=== PATIENT | female | born 1955 ===

== ENCOUNTER 2017-03-30 10:55 | Outpatient (CLI) | payer OTHER ==
[2017-03-30 19:01] LABS: BILIRUBIN,TOTAL 0.6 mg/dL (0.2-1.0); TOTAL PROTEIN 7.3 g/dL (6.7-8.2)
[2017-03-30 19:27] LABS: BILIRUBIN,DIRECT < 0.1 mg/dL (0.1-0.5)
== END 2017-03-30 10:56 | disposition home or self-care (01) ==
LOC: LAB.F 10:55
PROVIDERS: ATTEND Naturopath
DX: Z20.5 Contact with and (suspected) exposure to viral hepatitis (principal)
CPT/HCPCS: 36415; 80076; 82977; 86803; 87522

== ENCOUNTER 2018-05-29 22:31 | Outpatient (CLI) | payer OTHER | END 2018-05-29 22:32 | disposition critical access hospital (66) | LOC: EMS 22:31 | PROVIDERS: ATTEND Surgery | DX: R07.9 Chest pain, unspecified (principal) | CPT/HCPCS: A0425; A0427 ==

== ENCOUNTER 2018-05-29 23:09 | Emergency (ER) | payer OTHER ==
[2018-05-29] MEDS ORDERED: ASPIRIN CHEW 81 MG TABLET PO STA (23:19)
[2018-05-29 23:42] LABS: BASOPHILS # (AUTO) 0.1 10^3/uL (0.0-0.1); EOSINOPHILS # (AUTO) 0.1 10^3/uL (0.0-0.7); EOSINOPHILS % (AUTO) 1.9 %; HGB - HEMOGLOBIN 13.3 g/dL (12.0-16.0); LYMPHOCYTES # (AUTO) 2.1 10^3/uL (1.5-3.5); LYMPHOCYTES % (AUTO) 38.1 %; MEAN CORPUSCULAR HEMOGLOBIN 31.2 pg (27.0-31.0); MEAN CORPUSCULAR HGB CONC 34.5 g/dL (32.0-36.0); MEAN CORPUSCULAR VOLUME 90.3 fL (81.0-99.0); MEAN PLATELET VOLUME 9.9 fL (7.9-10.8); MONOCYTES # (AUTO) 0.3 10^3/uL (0.0-1.0); MONOCYTES % (AUTO) 5.9 %; NEUTROPHILS # (AUTO) 2.9 10^3/uL (1.5-6.6); NEUTROPHILS % (AUTO) 53.1 %; PLT - PLATELET COUNT 181 10^3/uL (130-450); RED BLOOD COUNT 4.28 10^6/uL (4.20-5.40); RED CELL DISTRIBUTION WIDTH 13.5 % (12.0-15.0); WHITE BLOOD COUNT 5.5 x10^3/uL (4.8-10.8)
--- NOTE | 2018-05-29 23:49 | XRAY Report ---
Reason: chest pain Procedure Date: 05/29/2018 Accession Number: [id number] / [id number] Procedure: XR - Chest 1 View X-Ray CPT Code: 11789 FULL RESULT: EXAM: CHEST RADIOGRAPHY EXAM DATE: 05/29/2018 11:33 PM. CLINICAL HISTORY: Chest pain. Mid chest pain, left-sided chest pain, COMPARISON: None. TECHNIQUE: 1 view. FINDINGS: Lungs/Pleura: No focal opacities evident. No pleural effusion. No pneumothorax. Mediastinum: Within exam limitations, the cardiomediastinal contour is normal. Other: Small to medium hiatal hernia. IMPRESSION: Small to medium hiatal hernia. No acute cardiopulmonary abnormality demonstrated. RADIA
[2018-05-29 23:54] LABS: ALBUMIN 4.3 g/dL (3.2-5.5); ALBUMIN/GLOBULIN RATIO 1.5 (1.0-2.2); BILIRUBIN,TOTAL 0.4 mg/dL (0.2-1.0); CREATININE 0.7 mg/dL (0.4-1.0); TOTAL PROTEIN 7.2 g/dL (6.7-8.2)
--- NOTE | 2018-05-30 00:55 | ED Physician Documentation ---
PD HPI CHEST PAIN - Stated complaint Stated Complaint: LEFT SIDE CP - Chief complaint Chief Complaint: Cardiac - History obtained from History obtained from: Patient, EMS - History of Present Illness Timing - onset: Today Timing - onset during: Rest Timing - details: Gradual onset, Still present Quality: Pressure, Sharp Location: Left chest Worsened by: Movement, Palpation Associated symptoms: No: Shortness of air, Diaphoresis, Nausea Similar symptoms before: Has not had sx before Recently seen: Not recently seen - Additional information Additional information: Patient is a 62 year old female presenting to the emergency department for left sided chest pain. patient states that it started this evening. it is in her left chest. It is localized and worse when you press on it. patient denies aggravating or alleviating factors. patient states that it was 4/10 when she called ems. Patient was treated with nitro enroute which brought the pain to a 2. Upon initial evaluation in the emergency department patient was well appearing and in no distress. 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 Review of Systems Ten Systems: 10 systems reviewed and negative Constitutional: denies: Fever, Chills Eyes: reports: Reviewed and negative Cardiac: reports: Chest pain / pressure. 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: Hysterectomy HEENT: Tonsil/Adenoidectomy - Allergies Allergies/Adverse Reactions: Allergies Allergy/AdvReac Type Severity Reaction Status Date / Time bacitracin [From Polysporin] Allergy Rash Verified 05/29/18 23:15 gluten Allergy Rash Verified 05/29/18 23:15 miconazole Allergy Rash Verified 05/29/18 23:15 [From Neosporin AF] polymyxin B [From Polysporin] Allergy Rash Verified 05/29/18 23:15 high frutose corn syrup AdvReac Nausea Uncoded 05/29/18 23:15 sugar AdvReac Nausea Uncoded 05/29/18 23:15 - Social History Does the pt smoke?: No Smoking Status: Never smoker Does the pt drink ETOH?: No Does the pt have substance abuse?: No - Immunizations Immunizations are current?: Yes - POLST Patient has POLST: No PD ED PE NORMAL - Vitals Vital signs reviewed: Yes - General General: Alert and oriented X 3, No acute distress - HEENT HEENT: Atraumatic - Cardiac Cardiac: RRR - Respiratory Respiratory: No respiratory distress, Clear bilaterally - Abdomen Abdomen: Soft - Derm Derm: Normal color, Warm and dry, No rash - Extremities Extremities: No deformity - Neuro Neuro: Alert and oriented X 3, No motor deficit, Normal speech Eye Opening: Spontaneous Motor: Obeys Commands Verbal: Oriented GCS Score: 15 - Psych Psych: Normal mood PD ED PE EXPANDED - Cardiac Cardiac: Chest wall TTP (tenderness to palpation of left chest wall) Results - Vitals Vitals: Vital Signs - 24 hr 05/29/18 05/29/18 23:10 23:20 Temperature 36.4 C L Heart Rate 67 Respiratory 18 Rate Blood Pressure 127/85 H Blood Pressure 127/85 H [Right] O2 Saturation 93 Oxygen O2 Source Room air - EKG (time done) 2314 Rate: Rate (enter#) (60) Rhythm: NSR [place]: Normal Intervals: Normal CT QRS: Normal Ischemia: Normal ST segments - Labs Labs: Laboratory Tests 05/29/18 05/29/18 05/29/18 23:35 23:35 23:35 WBC 5.5 RBC 4.28 Hgb 13.3 Hct 38.6 MCV 90.3 MCH 31.2 H MCHC 34.5 RDW 13.5 Plt Count 181 MPV 9.9 Neut # (Auto) 2.9 Lymph # (Auto) 2.1 [place] # (Auto) 0.3 Eos # (Auto) 0.1 Baso # (Auto) 0.1 Absolute Nucleated RBC 0.00 Nucleated RBC % 0.1 Sodium 137 Potassium 3.6 Chloride 103 Carbon Dioxide 25 Anion Gap 9.0 BUN 13 Creatinine 0.7 Estimated GFR (MDRD) 85 L Glucose 108 H Calcium 9.0 Total Bilirubin 0.4 AST 21 ALT 26 Alkaline Phosphatase 47 Troponin I < 0.04 B-Natriuretic Peptide Total Protein 7.2 Albumin 4.3 Globulin 2.9 Albumin/Globulin Ratio 1.5 Lipase 51 05/29/18 23:35 WBC RBC Hgb Hct MCV MCH MCHC RDW Plt Count MPV Neut # (Auto) Lymph # (Auto) [place] # (Auto) Eos # (Auto) Baso # (Auto) Absolute Nucleated RBC Nucleated RBC % Sodium Potassium Chloride Carbon Dioxide Anion Gap BUN Creatinine Estimated GFR (MDRD) Glucose Calcium Total Bilirubin AST ALT Alkaline Phosphatase Troponin I B-Natriuretic Peptide 28 Total Protein Albumin Globulin Albumin/Globulin Ratio Lipase - Rads (name of study) chest x-ray Radiology: Final report received (normal) PD MEDICAL DECISION MAKING - ED course Complexity details: reviewed old records, reviewed results, re-evaluated patient, considered differential, d/w patient, d/w family ED course: Patient was seen and examined at bedside. patient was well appearing and in no acute distress. ekg was performed was within normal limits. iv access was gained and labs were drawn. patient was treated with aspirin. chest x-ray was within normal limits. Patient's diagnostics including repeat troponin were within normal limits. Patient had a HEART score of 1. patient required no further work up at this time and was stable for discharge with outpatient follow up. - Sepsis Event Vital Signs: Vital Signs - 24 hr 05/29/18 05/29/18 23:10 23:20 Temperature 36.4 C L Heart Rate 67 Respiratory 18 Rate Blood Pressure 127/85 H Blood Pressure 127/85 H [Right] O2 Saturation 93 Oxygen O2 Source Room air Departure - Departure Disposition: 01 Home, Self Care Clinical Impression: Chest wall pain Condition: Good Instructions: ED Strain Chest Wall Follow-Up: primary,care provider [Other] - As Needed Comments: Your diagnostics today were within normal limits. there were no significant abnormalities on you blood work, ekg or imaging. Your symptoms are likely musculoskeletal in nature. you can take motrin or tylenol as needed for pain. You should follow up with your doctor if your symptoms persist. You may return to the emergency department at any time for new, worsening or uncontrollable symptoms.
[2018-05-30 01:39] VITALS: BP 112/74
== END 2018-05-30 01:46 | disposition home or self-care (01) ==
LOC: EDUNIT# → ED 23:09
DX: R07.89 Other chest pain (principal)
CPT/HCPCS: 36415; 71045; 80053; 83690; 83880; 84484; 85025; 93005; 99283; 99284; A9270

== ENCOUNTER 2020-07-25 15:20 | Outpatient (CLI) | payer OTHER | END 2020-07-25 15:21 | disposition EMS.NT | LOC: EMS 15:20 | PROVIDERS: ATTEND Surgery | DX: R06.02 Shortness of breath (principal) ==

== ENCOUNTER 2020-07-25 16:00 | Emergency (ER) | payer OTHER ==
--- NOTE | 2020-07-25 16:27 | ED Physician Documentation ---
History of Present Illness - Stated complaint Stated Complaint: DIZZY, SOA - Chief complaint Chief Complaint: Resp - History obtained from History obtained from: Patient - History of Present Illness Timing: Prior to arrival - Additonal information Additional information: 64-year-old female presents to the emergency department for evaluation of shortness of air. She reports that this a.m. when she woke up she felt that she was dizzy. It was not necessarily positional and she denied at that time that there was chest pain or difficulty breathing. She did not feel fatigued have a cough or fever. She decided to lay down and take a nap. She woke up on her side and stated that she was gasping for air and it took a while before she could catch her breath. She got very concerned and called the nurse line for her insurance. They advised that she call EMS. EMS arrived at her house and told her that everything was fine. At this time she was no longer feeling short of air, she had no chest pain or any dizziness but she presents to the emergency department requesting Covid screening. Patient incidentally states that in the past she has had. This occurs 3-4 times a year and last for a few seconds. She denies that she had palpitations today She denies any recent travel, no unilateral leg swelling. No history of DVT. Does not take hormones. Non-smoker. No drinking. No history of coronary artery disease or [place]. She does not take any prescribed medications Review of Systems Constitutional: reports: Reviewed and negative Ears: reports: Reviewed and negative Nose: reports: Reviewed and negative Throat: reports: Reviewed and negative Cardiac: denies: Chest pain / pressure, Pedal edema, Calf pain Respiratory: reports: Dyspnea. 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: Hysterectomy HEENT: Tonsil/Adenoidectomy - Present Medications Home Medications: Ambulatory Orders Medication Instructions Recorded Confirmed No Known Home Medications 07/25/20 07/25/20 - Allergies Allergies/Adverse Reactions: Allergies Allergy/AdvReac Type Severity Reaction Status Date / Time bacitracin [From Polysporin] Allergy Rash Verified 07/25/20 16:13 gluten Allergy Rash Verified 07/25/20 16:13 miconazole Allergy Rash Verified 07/25/20 16:13 [From Neosporin AF] polymyxin B [From Polysporin] Allergy Rash Verified 07/25/20 16:13 high frutose corn syrup AdvReac Nausea Uncoded 07/25/20 16:13 sugar AdvReac Nausea Uncoded 07/25/20 16:13 - Social History Does the pt smoke?: No Smoking Status: Never smoker Does the pt drink ETOH?: No Does the pt have substance abuse?: No - Immunizations Immunizations are current?: Yes - POLST Patient has POLST: No PD ED PE NORMAL - General General: Alert and oriented X 3, No acute distress - HEENT HEENT: PERRL - Neck Neck: Supple, no meningeal sign - Cardiac Cardiac: RRR, No murmur, No gallop, No rub, Strong equal pulses - Respiratory Respiratory: Clear bilaterally - Abdomen Abdomen: Normal bowel sounds, Soft, Non tender, Non distended - Back Back: No CVA TTP - Derm Derm: Warm and dry, No rash - Extremities Extremities: No deformity, No tenderness to palpate, Normal ROM s pain - Neuro Neuro: Alert and oriented X 3, youth worker 2-12 intact, No motor deficit, No sensory deficit, Normal speech Eye Opening: Spontaneous Motor: Obeys Commands Verbal: Oriented GCS Score: 15 Results - Vitals Vitals: Vital Signs - 24 hr 07/25/20 16:08 Temperature 36.5 C Heart Rate 66 Respiratory 16 Rate Blood Pressure 143/82 H O2 Saturation 97 Oxygen O2 Source Room air - EKG (time done) 1626 Rate: Rate (enter#) (60) Rhythm: NSR [place]: Normal Intervals: Normal [place] QRS: Normal Ischemia: Normal ST segments Compare to prior EKG: Unchanged from prior EKG Computer interpretation: Agree with computer - Labs Labs: Laboratory Tests 07/25/20 07/25/20 07/25/20 17:19 17:19 17:19 WBC 6.1 RBC 4.41 Hgb 13.7 Hct 42.2 MCV 95.7 MCH 31.1 H MCHC 32.5 RDW 12.9 Plt Count 208 MPV 11.3 H Neut # (Auto) 3.6 Lymph # (Auto) 1.9 [place] # (Auto) 0.4 Eos # (Auto) 0.1 Baso # (Auto) 0.1 Absolute Nucleated RBC 0.00 Nucleated RBC % 0.0 Sodium 139 Potassium 3.8 Chloride 102 Carbon Dioxide 27 Anion Gap 10.0 BUN 10 Creatinine 0.8 Estimated GFR (MDRD) 73 L Glucose 91 Calcium 9.1 Total Bilirubin 0.6 AST 16 ALT 19 Alkaline Phosphatase 42 Troponin I High Sens < 2.3 L Total Protein 7.2 Albumin 4.3 Globulin 2.9 Albumin/Globulin Ratio 1.5 Lipase 63 H TSH 07/25/20 17:19 WBC RBC Hgb Hct MCV MCH MCHC RDW Plt Count MPV Neut # (Auto) Lymph # (Auto) [place] # (Auto) Eos # (Auto) Baso # (Auto) Absolute Nucleated RBC Nucleated RBC % Sodium Potassium Chloride Carbon Dioxide Anion Gap BUN Creatinine Estimated GFR (MDRD) Glucose Calcium Total Bilirubin AST ALT Alkaline Phosphatase Troponin I High Sens Total Protein Albumin Globulin Albumin/Globulin Ratio Lipase TSH 0.81 - Rads (name of study) cxr Radiology: Final report received (Moderately large hiatal hernia behind the heart, no definite source of chest pain is found. The comparison study documents a hiatal hernia of nearly the same size previously in May 2018) PD MEDICAL DECISION MAKING - ED course Complexity details: reviewed results, re-evaluated patient, considered differential, d/w patient ED course: 64-year-old female presents the emergency department for evaluation of acute brian rtness of air that she noticed this morning after she woke up from her nap. She did call the nurse line as well as EMS. However she was told to come to the ER for further evaluation. At the time that she presents to the ER she endorses mild anxiety but has no shortness of air. She denies any chest pain. She has no dizziness vomiting or abdominal pain. On exam, her EKG is sinus rhythm nonischemic. High-sensitivity troponin is negative. By Wells criteria she is low risk for PE. D-dimer and imaging deferred. Her chest x-ray shows no acute focal opacities. It does show a rather large hiatal hernia that is unchanged in appearance from previous x-ray. She does have COVID-19 screening pending. During the time here in the emergency department she has remained clinically stable with sinus rhythm and no ectopy. The findings were discussed with the patient. She may need to continue follow-up with a primary care doctor and/or a surgeon for evaluation of the hiatal hernia. It is unclear to me at this time if it is contributing to her symptoms. Emergent and worsen return precautions were discussed. COVID-19 screening is pending Departure - Departure Disposition: 01 Home, Self Care Clinical Impression: Shortness of breath, Hiatal hernia Condition: Stable Record reviewed to determine appropriate education?: Yes Instructions: Hiatal Hernia Comments: Suzanne I am glad that you came into the ER today. We are screening you for COVID-19. We will not have these results for about 48 to 72 hours. We will only call you if the results are positive. You may find confirmatory testing on the [facility] portal. Your EKG today was essentially normal. Lab testing to evaluate for heart attack was negative. The most significant finding on any of your work-up today was that of a large hiatal hernia. This may be causing your intermittent bloating as well as possibly the shortness of breath you experienced this morning when you took a nap. Please discuss this ED visit with your primary care doctor. You may benefit from referral to a manager chemistry or a general surgeon for evaluation of this hernia. If at any point you develop chest pain with walking, have uncontrolled vomiting, have shortness of breath or any other emergent medical concerns please return immediately to the ER
--- NOTE | 2020-07-25 16:46 | XRAY Report ---
PROCEDURE: Chest 1 View X-Ray INDICATIONS: Chest Pain TECHNIQUE: One view of the chest was acquired. COMPARISON: Single view chest 05/29/2018. FINDINGS: Surgical changes and devices: None. Lungs and pleura: No pleural effusions or pneumothorax. Lungs are clear. Mediastinum: Mediastinal contours appear normal except for presence of a large hiatal hernia behind the heart, containing gas. Heart size is normal. Bones and chest wall: No suspicious bony lesions. Overlying soft tissues appear unremarkable. IMPRESSION: Moderately large hiatal hernia behind the heart, no definite source of chest pain is found. The selam rison study documents a hiatal hernia of nearly the same size previously present in May 2018. Reviewed by: Nestor Collier MD on 07/25/2020 4:45 PM PST Approved by: Nestor Collier MD on 07/25/2020 4:45 PM PST Station ID: [id number]
[2020-07-25 17:37] LABS: BASOPHILS # (AUTO) 0.1 10^3/uL (0.0-0.1); BASOPHILS % (AUTO) 1.3 %; EOSINOPHILS # (AUTO) 0.1 10^3/uL (0.0-0.7); EOSINOPHILS % (AUTO) 1.6 %; HGB - HEMOGLOBIN 13.7 g/dL (12.0-16.0); LYMPHOCYTES # (AUTO) 1.9 10^3/uL (1.5-3.5); LYMPHOCYTES % (AUTO) 31.6 %; MEAN CORPUSCULAR HEMOGLOBIN 31.1 pg (27.0-31.0); MEAN CORPUSCULAR HGB CONC 32.5 g/dL (32.0-36.0); MEAN CORPUSCULAR VOLUME 95.7 fL (81.0-99.0); MEAN PLATELET VOLUME 11.3 fL (7.9-10.8); MONOCYTES # (AUTO) 0.4 10^3/uL (0.0-1.0); MONOCYTES % (AUTO) 6.2 %; NEUTROPHILS # (AUTO) 3.6 10^3/uL (1.5-6.6); NEUTROPHILS % (AUTO) 59.1 %; PLT - PLATELET COUNT 208 10^3/uL (130-450); RED BLOOD COUNT 4.41 10^6/uL (4.20-5.40); RED CELL DISTRIBUTION WIDTH 12.9 % (12.0-15.0); WHITE BLOOD COUNT 6.1 x10^3/uL (4.8-10.8)
[2020-07-25 17:49] LABS: ALBUMIN 4.3 g/dL (3.2-5.5); ALBUMIN/GLOBULIN RATIO 1.5 (1.0-2.2); BILIRUBIN,TOTAL 0.6 mg/dL (0.2-1.0); CALCIUM 9.1 mg/dL (8.5-10.3); CREATININE 0.8 mg/dL (0.4-1.0); TOTAL PROTEIN 7.2 g/dL (6.7-8.2)
[2020-07-25 18:16] VITALS: BP 148/76
== END 2020-07-25 18:19 | disposition home or self-care (01) ==
LOC: ED 16:00
DX: R06.02 Shortness of breath (principal); K44.9 Diaphragmatic hernia without obstruction or gangrene; Z20.828 Contact with and (suspected) exposure to other viral communicable diseases
CPT/HCPCS: 36415; 80053; 83690; 84443; 84484; 85025; 93005; 99284